=== PATIENT | female | born 1945 | race Caucasian/White ===

== ENCOUNTER 2020-10-08 13:21 | Outpatient (RCR) | payer MEDICARE, SELFPAY ==
[2020-10-08] MEDS: COVID-19 VACC, MRNA(PFIZER)/PF 30 MCG/0.3 ML SYRINGE IM (12:48)
[2020-10-29] MEDS: COVID-19 VACC, MRNA(PFIZER)/PF 30 MCG/0.3 ML SYRINGE IM (09:31)
== END 2021-01-07 23:59 ==
LOC: IMMUN 13:21
PROVIDERS: Referring Provider Family Medicine; Visit Provider Family Medicine
DX: Z23 Encounter for immunization (principal)
CPT/HCPCS: 0001A; 0002A; 91300

== ENCOUNTER 2022-05-25 13:30 | Observation (INO) | payer MEDICARE, SELFPAY ==
[2022-05-25] VITALS (7 sets, daily range): BP systolic 129–181; BP diastolic 72–104; PULSE 92–110; RESP 16–20; TEMP 36.7–37.3; O2SAT 95–100; BMI 30.9; BMI 31.4
--- NOTE | 2022-05-25 14:24 | RAD_ITS ---
STUDY: X-RAY CHEST REASON FOR EXAM: Female, 77 years old. SOB TECHNIQUE: Single AP portable view of the chest. COMPARISON: Comparison is made with prior examination dated 12/20/2014. FINDINGS: EKG electrodes are seen. Increased markings are seen at the left lung base suggestive of either early infiltrate and/or atelectasis. There is no demonstrated pleural abnormality. Normal size heart. Normal mediastinum and holden. Normal visualized pulmonary arteries. There is atherosclerotic tortuosity of the aortic arch and descending thoracic aorta. Normal visualized thoracic spine. Normal visualized ribs, clavicles, and shoulders. There is no demonstrated abnormality of the visualized soft tissue structures of the upper abdomen. RAD/Chest 1 View (Portable) IMPRESSION: Increased markings at the left lung base suggestive of either atelectasis and/or early infiltrate. Electronically Signed: Costa Caruso MD at 15:12 EDT ,
--- NOTE | 2022-05-25 14:24 | EKG12_ITS ---
Test Reason : SOB Blood Pressure : / mmHG Vent. Rate : 096 BPM Atrial Rate : 096 BPM P-R Int : 128 ms QRS Dur : 074 ms QT Int : 350 ms P-R-T Axes : 074 037 047 degrees QTc Int : 442 ms Normal sinus rhythm Normal ECG Confirmed by ANNY WINN, ANN-MARIE ([id number]), photo editor DICKSON AC ([id number]) on 05/27/2022 10:53:34 AM Referred By: Confirmed By:ANN-MARIE MCCORMICK MD
--- NOTE | 2022-05-25 14:26 | EDS_ITS ---
HPI History of Present Illness Chief Complaint: General Illness Informant: patient and spouse/S.O. Narrative Narrative: Patient presents with discomfort in her upper chest back shoulders and neck area. She states this started somewhere around noon yesterday. It was slow onset. It was not sudden tearing ripping. She is just aching in her upper body. It also does hurt when she takes a deep breath but she is not short of breath. She has a history of asthma that she takes Symbicort and albuterol for. But she has not been having wheezing or needing her inhaler. Patient has had trips recently. They flew to [facility] to take a cruise and just flew back 2 weeks ago. No leg pain or swelling. She has never had a DVT or PE nor has any known family member. She has no hemoptysis. Nothing specifically makes her symptoms worse other than moving and stretching. She thinks she did stretch too much yesterday to cause this. Using a neck brace also helps her. She has no numbness tingling weakness. She has no history of heart disease. She does have asthma and irritable bowel. She is non-smoker no blood pressure diabetes or cholesterol. Only meds are Symbicort, albuterol and Bentyl. Allergies to aspirin morphine and antihistamines No recent surgeries Non-smoker lives with [facility] Medical History (Updated 05/25/22 @ 18:[address] Castro Alcala MD) Asthma Home Medications budesonide-formoterol HFA 160 mcg-4.5 mcg/actuation aerosol inhaler (Symbicort) 2 puff inhalation BID 05/25/22 [History Last Taken Unknown] Allergy/AdvReac Type Severity Reaction Status Date / Time aspirin [ASA] AdvReac Other Verified 05/25/22 13:34 morphine AdvReac Other Verified 05/25/22 13:34 ANTI-HISTAMINES AdvReac Other Uncoded 05/25/22 13:34 Social History Smoking Status: Former smoker ROS ROS ED Constitutional Constitutional ED: Reports other Details: Patient had slight elevated temperature of 100.2 and then rechecked at 100.8 but this has not recurred since yesterday Eyes Eyes: Denies change in vision ENT ENT ED: Denies rhinorrhea or sore throat Cardiovascular Cardiovascular: Reports chest pain; Denies palpitations or racing heartbeat Respiratory/Chest Respiratory/Chest: Denies cough, dyspnea or sputum Gastrointestinal Gastrointestinal: Denies abdominal pain, nausea or vomiting Genitourinary Genitourinary ED: Denies dysuria or hematuria Musculoskeletal Musculoskeletal: Reports myalgias and neck pain; Denies back pain Integumentary Denies rash Neurologic Neurologic: Denies headache(s), paresthesias or weakness Endocrine Endocrinology: Denies polydipsia or polyuria Hematologic/Lymphatic Hematologic/Lymphatic: Denies easy bleeding or easy bruising Allergic/Immunologic Allergic/Immunologic ED: Denies urticaria EXAM Physical Exam Const Vital Signs: 05/25/22 13:32 05/25/22 14:55 05/25/22 16:00 Temperature 98.0 F Temperature Source Temporal Pulse Rate 110 H 92 Respiratory Rate 18 16 Respiratory Pattern Normal Blood Pressure 129/87 H 155/80 H Blood Pressure Mean 101 105 Pulse Ox 100 97 Oxygen Delivery Method Room Air Room Air 05/25/22 17:22 05/25/22 17:51 Temperature 98.0 F Temperature Source Temporal Pulse Rate 95 100 Respiratory Rate 19 H 17 Respiratory Pattern Blood Pressure 135/72 H 148/92 H Blood Pressure Mean 93 110 Pulse Ox 95 97 Oxygen Delivery Method Room Air Room Air Positive well nourished and well developed General Appearance ED: well developed and NAD; Negative for cyanotic or diaphoretic HEENT Reports moist mucous membranes Eyes EOMs intact bilaterally General Eye ED: Negative for scleral icterus Neck supple and no JVD Neck Narrative: She does have mild reproducible tenderness diffusely of the muscles of the neck upper back and chest and even around the shoulders. Resp normal respiratory effort and clear to auscultation bilaterally Cardio regular rate and regular rhythm Rate: other Other Details: Rate at this time at about 85. No murmur is heard. Normal distal pulses. GI normal to inspection, nondistended, normoactive bowel sounds Back/Spine no CVA tenderness Extremity normal to inspection Extremity Narrative: No edema cords tenderness or asymmetry. General Extremety ED: Negative for edema or tenderness General Extremity: Negative for edema Neuro oriented x3 Psych mental status grossly normal Skin no rashes or lesions noted MDM MDM MDM Narrative Medical decision making narrative: X-ray hints of atelectasis. But patient has no fever or white count. She is not really coughing to any great degree. No sputum. Her blood work shows normal CBC. D-dimer is negative. Electrolytes are normal. Glucose is minimally up at 116. However, her troponin was slightly elevated at 70. I talked with the patient again. She states she is having a lot of pain. She still describes it as her deltoid across her chest and shoulders on both sides but is a little more on the left. It is sore to lay on it or put pressure on it. It is a little sore to move. It has not migrated. This is the same pain that started yesterday at about noon. It was slow onset. Even though her D- dimer is negative, I am concerned with her pain. I will do a CTA of the chest. She states the only thing that she can take for pain is Motrin. She did take 3 aspirins yesterday less than 24 hours ago. She has a nonspecific intolerance but no allergy to NSAIDs. I stated we can try a small dose of Toradol. CTA of the chest is not showing any acute process. I did discuss the case prior to the CT with cardiology, Dr. Dougherty. Plan will be to admit. I discussed case with hospitalist. Repeat troponin is ordered Lab Data Labs: Laboratory Results - last 24 hr 05/25/22 05/25/22 05/25/22 14:45 14:45 14:45 WBC 8.5 RBC 4.36 Hgb 13.9 Hct 41.3 MCV 94.7 MCH 31.9 MCHC 33.7 RDW Std Deviation 49.1 H RDW Coeff of Uriel 14.1 Plt Count 336 MPV 10.6 Immature Gran % (Auto) 0.200 Neut % (Auto) 71.0 H Lymph % (Auto) 14.8 L [place] % (Auto) 10.2 H Eos % (Auto) 3.3 Baso % (Auto) 0.5 Absolute Neuts (auto) 6.0 Absolute Lymphs (auto) 1.26 Nucleated RBC % 0 D-Dimer Quant (PE/DVT) 0.48 Sodium 139 Potassium 4.0 Chloride 106 Carbon Dioxide 30.0 Anion Gap 3 L BUN 12 Creatinine 0.77 Estim Creat Clear Calc 41.97 Est GFR (MDRD) Af Amer 95 Est GFR (MDRD) Non-Af 78 BUN/Creatinine Ratio 15.7 Glucose 116 H Calcium 9.2 Troponin I High Sens 70 H 05/25/22 17:15 WBC RBC Hgb Hct MCV MCH MCHC RDW Std Deviation RDW Coeff of Uriel Plt Count MPV Immature Gran % (Auto) Neut % (Auto) Lymph % (Auto) [place] % (Auto) Eos % (Auto) Baso % (Auto) Absolute Neuts (auto) Absolute Lymphs (auto) Nucleated RBC % D-Dimer Quant (PE/DVT) Sodium Potassium Chloride Carbon Dioxide Anion Gap BUN Creatinine Estim Creat Clear Calc Est GFR (MDRD) Af Amer Est GFR (MDRD) Non-Af BUN/Creatinine Ratio Glucose Calcium Troponin I High Sens 57 H Radiography Diagnostic Testing: Clinical Impression(s) from Imaging Studies Chest X-Ray 05/25/22 14:24 IMPRESSION: Increased markings at the left lung base suggestive of either atelectasis and/or early infiltrate. Electronically Signed: Costa Caruso MD at 15:12 EDT , Chest CTA 05/25/22 16:00 IMPRESSION: No demonstrated pulmonary embolism or arterial dissection. Electronically Signed: Jony Chacko MD at 17:02 EDT , Hest x-ray shows some increased markings at the lung base that could be a telectasis. Discharge Plan Triage Chief Complaint: General Illness ED Provider: Castro Alcala Dx/Rx/DC Orders Clinical Impression: Chest pain, Elevated troponin Primary Care Provider: Care Physician,No Primary Disposition Disposition: Acute Care Hospital [facility]
[2022-05-25 15:01] LABS: Absolute Lymphocyte Count 1.26 X10^3/uL (0.83-4.51); Basophil# 0.04 X10^3/uL; Basophil% 0.5 % (0-1); Eosinophil# 0.28 X10^3/uL; Eosinophils% 3.3 % (0-5); Hematocrit 41.3 % (37-47); Hemoglobin 13.9 g/dL (12.0-15.0); Lymphocyte # 1.26 X10^3/ul (0.83-4.51); Lymphocyte % 14.8 % (19-41); Mean Corp Hgb Conc 33.7 g/dL (32-36); Mean Corpuscular Hgb 31.9 pg (27.0-32.0); Mean Corpuscular Volume 94.7 fL (81-99); Mean Platelet Vol. 10.6 fl (6.2-12.0); Monocyte# 0.87 X10^3/uL; Monocyte% 10.2 % (0-10); NRBC Flagged by Analyzer 0 % (0-5); Neutrophil # 6.02 X10^3/uL (2.7-7.7); Platelet Count 336 K/mm3 (150-450); RBC Distribution Width CV 14.1 % (11.6-14.6); RBC Distribution Width SD 49.1 fl (35.1-43.9); Red Blood Count 4.36 M/mm3 (4.2-5.4); White Blood Count 8.5 K/mm3 (4.4-11.0)
[2022-05-25 15:16] LABS: D-Dimer Quantitative (DVT/PE) 0.48 FEU/ug/m (0.27-0.49)
[2022-05-25 15:21] LABS: Anion Gap 3 (5-15); BUN 12 mg/dL (7-18); BUN/Creat Ratio 15.7 RATIO (10-20); Calcium,Total 9.2 mg/dL (8.5-10.1); Chloride 106 mmol/L (98-107); Creatinine, Serum 0.77 mg/dL (0.55-1.02); EST Glomerular Filtration Rate 78 mL/min (>60); Est Glom Filt Rate - Afr Amer 95 mL/min (>60); Estimated Creatinine Clearance 41.97 ml/min; Glucose 116 mg/dL (74-106); Sodium Level 139 mmol/L (136-145); Troponin-I HS 70 pg/mL (3.0-54.0)
--- NOTE | 2022-05-25 15:43 | CM.ED ---
SW Note Referral Source: Case Find Referral Reason: No Primary Care Physician (PCP) SW reviewed chart and noted that patient has no PCP. SW provided patient with list of [facility] and [facility] Physician List for reference. Patient reports no PCP but they are going to [place] shortly for 6 months and will have PCP in [place]. No other issues or concerns voiced at this time. SW remains available for any additional needs. Plan: Provided patient with PCP information Brittany SANTIAGO
--- NOTE | 2022-05-25 16:00 | CT_ITS ---
EXAM: CT ANGIOGRAPHY CHEST WITHOUT AND WITH INTRAVENOUS CONTRAST CLINICAL INDICATION: chest pain TECHNIQUE: Helically acquired angiography images were obtained of the chest without and with intravenous contrast. This CT exam was performed using one or more of the following dose reduction techniques: automated exposure control, adjustment of the mA and/or kV according to patient size, and/or use of iterative reconstruction technique. This report was created using [employer] report generation technology. MIP reconstructed images were created and reviewed. CONTRAST: IV 100mL [id number]-370 RADIATION DOSE: CTDIvol = 11.79 mGy, DLP = 332.25 mGy-cm COMPARISON: None. FINDINGS: PULMONARY ARTERIES: No demonstrated pulmonary embolism or arterial dissection. AORTA: Unremarkable. Normal in caliber. No evidence of dissection. GREAT VESSELS OF AORTIC ARCH: Unremarkable. Normal in caliber. No evidence of dissection. LUNGS AND PLEURAL SPACES: Unremarkable. No mass. No consolidation or edema. No pleural effusion or thickening. No pneumothorax. HEART: There are calcifications of the coronary arteries. No pericardial effusion. No signs of right heart strain, ratio of right ventricle to left ventricle measures less than 1. MEDIASTINUM: Unremarkable. No mediastinal or hilar adenopathy. Esophagus is unremarkable. No hiatal hernia. THYROID: Unremarkable. No thyroid lesions. BONES/JOINTS: There are degenerative changes of the shoulders. There are multi-level degenerative changes of the thoracic spine. No suspicious lytic or blastic abnormality. CT/CTA Chest W/WO Contrast IMPRESSION: No demonstrated pulmonary embolism or arterial dissection. Electronically Signed: Jony Chacko MD at 17:02 EDT ,
[2022-05-25] MEDS: Ketorolac 15 MG/ML Vial IV (16:11)
--- NOTE | 2022-05-25 17:13 | PCM.CONS.C ---
Assessment & Plan Assessment/Plan (1) Chest pain: PLAN: Patient presents with chest discomfort which appears to be somewhat atypical for coronary disease. There appears to be a pleuritic component to the above. I do not hear pericardial friction rub. Pleuropericarditis however cannot be completely excluded. I would recommend the following: Continue cardiac enzyme series. Echocardiogram to assess ventricular function in a.m. If cardiac enzymes are fairly plateau I would recommend a pharmacologic myocardial perfusion stress test Would recommend nonsteroidal anti-inflammatory with indomethacin 25 mg 3 times a day Will review in a.m. and depending on the findings further recommendations made. HPI Consult Data Date of Consult: 05/25/22 HPI Narrative HPI Narrative: JAD OROZCO, is a 77 F who presents to the emergency room with complaints of upper chest back neck and shoulder discomfort. She said it started approximately a day or go slow onset not necessarily related to activity. Is also does hurt when she takes a deep breath. She did return from a trip to [facility] approximately 2 weeks ago and as part of her evaluation she had a D-dimer done which was negative and a CT scan of her chest with did not demonstrate any significant abnormality. Her EKG demonstrated normal sinus rhythm with no acute changes. She was noted to have a minimally elevated high-sensitivity troponin and cardiology was called for further evaluation and management. She complains of chest discomfort when she takes in a deep breath and does not want to cough because of the discomfort. [facility] Medical History (Updated 05/25/22 @ 17:[address] Merrill Dougherty MD) Asthma Home Medications budesonide-formoterol HFA 160 mcg-4.5 mcg/actuation aerosol inhaler (Symbicort) 2 puff inhalation BID 05/25/22 [History Last Taken Unknown] Allergy/AdvReac Type Severity Reaction Status Date / Time aspirin [ASA] AdvReac Other Verified 05/25/22 13:34 morphine AdvReac Other Verified 05/25/22 13:34 ANTI-HISTAMINES AdvReac Other Uncoded 05/25/22 13:34 Social History Smoking Status: Former smoker ROS Constitutional Constitutional: Denies fever(s) or weight loss Eyes Eyes: Reports systems reviewed and no addt'l complaints, except as documented ENT HEENT: Reports systems reviewed and no addt'l complaints, except as documented Cardiovascular Cardiovascular: Reports chest pain at rest and chest pain with activity; Denies dyspnea at rest, dyspnea on exertion, edema, palpitations or paroxysmal nocturnal dyspnea Respiratory/Chest Respiratory/Chest: Denies dyspnea on exertion, productive cough, shortness of breath at rest or shortness of breath with exertion Gastrointestinal Gastrointestinal: Denies change in bowel habits, nausea, vomiting or weight changes Genitourinary Genitourinary: Denies difficulty urinating Musculoskeletal Musculoskeletal: Denies joint stiffness or muscle weakness Integumentary Integumentary: Denies lesions Neurologic Neurologic: Denies dizziness or syncope Psychiatric Psychiatric: Denies anxiety Endocrine Endocrinology: Denies excessive sweating or fatigue Hematologic/Lymphatic Hematologic/Lymphatic: Denies anemia Allergic/Immunologic Allergic/Immunologic: Denies seasonal rhinorrhea Physical Exam Const alert, oriented x3 and no apparent distress General Appearance: cooperative HEENT hearing grossly normal bilaterally Head and Scalp: atraumatic Eyes EOMs intact bilaterally Neck General: normal visual inspection Chest inspection of chest normal and palpation of chest normal Resp normal respiratory effort Auscultation: clear to auscultation bilaterally Cardio regular rate, regular rhythm, S1 normal heart sound and S2 normal heart sound Jugular Venous Distention: JVD GI normal to inspection, nondistended, normoactive bowel sounds Extremity normal capillary refill and no pedal edema Peripheral Pulses: Yes pulses 2+ throughout and femoral pulses present Skin no rashes or lesions noted Neuro oriented x3 and CN's II-XII intact bilaterally Psych Appearance: grossly normal and appropriate Risk Stratification Risk Stratification Applicable: Yes Age >/= 65: Yes >/= 3 CAD Risk Factors (HTN, HLD, DM, family hx of CAD, or current smoker): No Aspirin Use in the Past 7 Days: No Severe Angina (>/= episodes in 24 hours): No EKG ST Changes >/= 0.5mm: No Positive Cardiac Marker: No MONA Risk Stratification Score: 1 MONA % Risk: 5% Risk Objective Data Vital Signs: Vital Signs Temp Pulse Resp BP Pulse Ox O2 Del Method 98.0 F 92 16 155/80 H 97 Room Air 05/25/22 13:32 05/25/22 16:00 05/25/22 16:00 05/25/22 16:00 05/25/22 16:00 05/25/22 16:00 Oxygen Delivery Method Room Air Weight: 180 lb Body Mass Index (BMI) 30.9 Lab / Micro Data Result Diagrams: 05/25/22 14:45 05/25/22 14:45 Labs: Laboratory Results - last 24 hr 05/25/22 14:45: WBC 8.5, RBC 4.36, Hgb 13.9, Hct 41.3, MCV 94.7, MCH 31.9, MCHC 33.7, RDW Std Deviation 49.1 H, RDW Coeff of Uriel 14.1, Plt Count 336, MPV 10.6, Immature Gran % (Auto) 0.200, Neut % (Auto) 71.0 H, Lymph % (Auto) 14.8 L, [place] % (Auto) 10.2 H, Eos % (Auto) 3.3, Baso % (Auto) 0.5, Absolute Neuts (auto) 6.0, Absolute Lymphs (auto) 1.26, Nucleated RBC % 0 05/25/22 14:45: D-Dimer Quant (PE/DVT) 0.48 05/25/22 14:45: Sodium 139, Potassium 4.0, Chloride 106, Carbon Dioxide 30.0, Anion Gap 3 L, BUN 12, Creatinine 0.77, Estim Creat Clear Calc 41.97, Est GFR (MDRD) Af Amer 95, Est GFR (MDRD) Non-Af 78, BUN/Creatinine Ratio 15.7, Glucose 116 H, Calcium 9.2, Troponin I High Sens 70 H Micro: Microbiology 05/25/22 14:45 Nasal Secretion SARS-CoV-2 Antigen (Rapid) - Final Cardiology Labs/Tests 05/25/22 14:45: WBC 8.5, RBC 4.36, Hgb 13.9, Hct 41.3, MCV 94.7, MCH 31.9, MCHC 33.7, Plt Count 336, MPV 10.6, Immature Gran % (Auto) 0.200, Neut % (Auto) 71.0 H, Lymph % (Auto) 14.8 L, [place] % (Auto) 10.2 H, Eos % (Auto) 3.3, Baso % (Auto) 0.5, Absolute Neuts (auto) 6.0, Nucleated RBC % 0 05/25/22 14:45: D-Dimer Quant (PE/DVT) 0.48 05/25/22 14:45: Sodium 139, Potassium 4.0, Chloride 106, Carbon Dioxide 30.0, Anion Gap 3 L, BUN 12, Creatinine 0.77, Est GFR (MDRD) Af Amer 95, Est GFR (MDRD) Non-Af 78, BUN/Creatinine Ratio 15.7, Glucose 116 H, Calcium 9.2 Rhythm: EKG: ECHO: Stress Test: Cardiac Cath: PCI: CT Surgery: Holter monitor: EPS: PPM: CXR: Chest CT Scan: Radiography Diagnostic Testing: Radiology Impression Chest X-Ray 05/25/22 14:24 IMPRESSION: Increased markings at the left lung base suggestive of either atelectasis and/or early infiltrate. Electronically Signed: Costa Caruso MD at 15:12 EDT , Chest CTA 05/25/22 16:00 IMPRESSION: No demonstrated pulmonary embolism or arterial dissection. Electronically Signed: Jony Chacko MD at 17:02 EDT ,
--- NOTE | 2022-05-25 17:27 | ECHOD_ITS ---
Reason For Study: CHEST PAIN Procedure This was a 2D Doppler, Color Flow transthoracic echocardiogram. Exam performed portable in patient room. Left Ventricle Normal LV size. Left ventricular systolic function is normal. The estimated ejection fraction is 55 %. No regional wall motion abnormalities noted. Right Ventricle Normal RV size. Normal systolic function. Atria Normal left atrium. Normal right atrium. Mitral Valve Normal mitral valve. Tricuspid Valve Normal tricuspid valve. Aortic Valve Normal aortic valve. Trisinus/trileaflet aortic valve. Pulmonic Valve Normal pulmonic valve. Great Vessels Normal aortic root. The pulmonary artery is normal size. Normal inferior vena cava. Pericardium/Pleural No pericardial effusion. MMode/2D Measurements & Calculations LVIDd: 4.8 cm IVSd: 1.1 cm Ao root diam: 3.5 cm LVIDs: 3.2 cm LVPWd: 1.0 cm RVDd: 2.4 cm FS: 32.6 % LAV(MOD-bp): 60.3 ml LVAd ap4: 24.1 cm2 LVAd ap2: 21.7 cm2 LAV(MOD-bp) Indexed: 32.0 ml/m2 LVLd ap4: 8.1 cm LVLd ap2: 7.4 cm LAV(MOD-sp2): 52.8 ml EDV(MOD-sp4): 61.1 ml EDV(MOD-sp2): 54.4 ml LAV(MOD-sp4): 62.3 ml EDV(sp4-el): 61.0 ml EDV(sp2-el): 53.9 ml LVAs ap4: 15.4 cm2 LVAs ap2: 12.5 cm2 LVLs ap4: 7.3 cm LVLs ap2: 6.4 cm ESV(MOD-sp4): 29.2 ml ESV(MOD-sp2): 22.1 ml ESV(sp4-el): 27.5 ml ESV(sp2-el): 20.6 ml EF(MOD-sp4): 52.2 % EF(MOD-sp2): 59.4 % EF(sp4-el): 55.0 % SV(MOD-sp4): 31.9 ml SV(MOD-sp2): 32.3 ml SV(sp4-el): 33.5 ml LA dimension(2D): 4.2 cm LA A4 area: 19.2 cm2 RA A4 area: 8.5 cm2 Doppler Measurements & Calculations Lat Peak E' Myke: 9.7 cm/sec Med Peak E' Myke: 6.9 cm/sec Ao V2 max: 119.7 cm/sec Ao max P.7 mmHg LV V1 max: 78.7 cm/sec PA V2 max: 96.8 cm/sec LV V1 max P.5 mmHg ECHO/Echo Complete Interpretation Summary Normal LV size. Left ventricular systolic function is normal. The estimated ejection fraction is 55 %. No regional wall motion abnormalities noted. Ordering Physician: Merrill Dougherty Referring Physician: NO PCP Performed By: Olive Motley, EVELYNE, RVT
[2022-05-25 17:42] LABS: Troponin-I HS 57 pg/mL (3.0-54.0)
[2022-05-25] MEDS: Indomethacin 25 MG Capsule PO ×2 (17:50→21:39)
--- NOTE | 2022-05-25 19:11 | PCM.HP.STD ---
HPI - General General Date of Admission: 05/25/22 HPI Narrative JAD OROZCO, is a 77 F who presents to the hospital with anterior posterior chest pain. She also has pain with deep breathing consistent with pleurisy which she says she has had in the past, she also has noticed relief of her pain when leaning forward and its worse when leaning backwards. The case was discussed by the ED physician with cardiology who felt that this is potentially a combination of pleurisy and pericarditis. She did have significant improvement with Toradol of her chest pain. She did have a slight troponin elevation at 57. She does not have any cardiac history and denies any recent viral illness that she is aware of. Because of recent travel she had a D-dimer done which was negative however she they proceed with a CT scan of her chest which did not show any PE. [facility] Medical History (Updated 05/25/22 @ 18:[address] Castro Alcala MD) Asthma Home Medications budesonide-formoterol HFA 160 mcg-4.5 mcg/actuation aerosol inhaler (Symbicort) 2 puff inhalation BID SOB 05/25/22 [History Last Taken 05/23/22] Allergy/AdvReac Type Severity Reaction Status Date / Time aspirin [ASA] AdvReac Other Verified 05/25/22 13:34 morphine AdvReac Other Verified 05/25/22 13:34 ANTI-HISTAMINES AdvReac Other Uncoded 05/25/22 13:34 Family History no significant family his no significant family history Surgical History (Updated 05/25/22 @ 18:36 by Shelia Hernandez) History of appendectomy History of tonsillectomy Social History Smoking Status: Former smoker ROS Constitutional Constitutional: Denies chills, fatigue, fever(s) or malaise Eyes Eyes: Denies blurry vision ENT HEENT: Denies headache(s) or nasal discharge Cardiovascular Cardiovascular: Reports chest pain; Denies dyspnea on exertion or syncope Respiratory/Chest Respiratory/Chest: Denies cough, shortness of breath at rest or shortness of breath with exertion Gastrointestinal Gastrointestinal: Denies constipation, diarrhea, nausea or vomiting Genitourinary Genitourinary: Denies dysuria Neurologic Neurologic: Denies focal weakness, numbness or tremor(s) Psychiatric Psychiatric: Denies anxiety or depression Vital Signs Vital Signs Vital Signs: 05/25/22 13:32 05/25/22 14:55 05/25/22 16:00 Temperature 98.0 F Temperature Source Temporal Pulse Rate 110 H 92 Respiratory Rate 18 16 Respiratory Pattern Normal Blood Pressure 129/87 H 155/80 H Blood Pressure Mean 101 105 Pulse Ox 100 97 Oxygen Delivery Method Room Air Room Air 05/25/22 17:22 05/25/22 17:51 Temperature 98.0 F Temperature Source Temporal Pulse Rate 95 100 Respiratory Rate 19 H 17 Respiratory Pattern Blood Pressure 135/72 H 148/92 H Blood Pressure Mean 93 110 Pulse Ox 95 97 Oxygen Delivery Method Room Air Room Air Weight Weight: 180 lb Body Mass Index (BMI) 30.9 Physical Exam Narrative General: Alert, Oriented x3, Cooperative, No apparent distress HEENT: Atraumatic, PERRLA, EOMI, Normocephalic Oral: Moist Mucosa Neck: Supple, No JVD Lungs: Clear to auscultation, Normal air movement, No rhonchi, No wheeze, No rales Cardiovascular: Regular rate, Regular Rhythm, Normal S1, Normal S2, No murmurs, no rubs Abdomen: Soft, Non Tender, Non-Distended, No Hepato-splenomegaly Extremities: No edema, Capillary Refill Less than 3 Seconds Skin: No rashes, No breakdown Musculoskeletal: No Tenderness to Palpation of Joints or Extremities Neurological: Cranial nerves II-XII grossly intact, Motor Exam 5/5 strength throughout, Sensory exam intact to light touch and pain Psych/Mental Status: Normal Affect, Appropriate Results Lab / Micro Data Result Diagrams: 05/25/22 14:45 05/25/22 14:45 Labs: Laboratory Results - last 24 hr 05/25/22 14:45: WBC 8.5, RBC 4.36, Hgb 13.9, Hct 41.3, MCV 94.7, MCH 31.9, MCHC 33.7, RDW Std Deviation 49.1 H, RDW Coeff of Uriel 14.1, Plt Count 336, MPV 10.6, Immature Gran % (Auto) 0.200, Neut % (Auto) 71.0 H, Lymph % (Auto) 14.8 L, [place] % (Auto) 10.2 H, Eos % (Auto) 3.3, Baso % (Auto) 0.5, Absolute Neuts (auto) 6.0, Absolute Lymphs (auto) 1.26, Nucleated RBC % 0 05/25/22 14:45: D-Dimer Quant (PE/DVT) 0.48 05/25/22 14:45: Sodium 139, Potassium 4.0, Chloride 106, Carbon Dioxide 30.0, Anion Gap 3 L, BUN 12, Creatinine 0.77, Estim Creat Clear Calc 41.97, Est GFR (MDRD) Af Amer 95, Est GFR (MDRD) Non-Af 78, BUN/Creatinine Ratio 15.7, Glucose 116 H, Calcium 9.2, Troponin I High Sens 70 H 05/25/22 17:15: Troponin I High Sens 57 H Micro: Microbiology 05/25/22 14:45 Nasal Secretion SARS-CoV-2 Antigen (Rapid) - Final Radiology Impression Chest X-Ray 05/25/22 14:24 IMPRESSION: Increased markings at the left lung base suggestive of either atelectasis and/or early infiltrate. Electronically Signed: Costa Caruso MD at 15:12 EDT , Chest CTA 05/25/22 16:00 IMPRESSION: No demonstrated pulmonary embolism or arterial dissection. Electronically Signed: Jony Chacko MD at 17:02 EDT , Assessment & Plan Assessment/Plan (1) Chest pain: (2) Elevated troponin: PLAN: Plan 1. Chest pain with an elevated troponin consistent with pericarditis/pleurisy ? We will consult cardiology, will proceed with an echo and a stress test in the morning ? Serial cardiac enzymes ? Indocin 25 mg p.o. 3 times daily DVT: Ambulation Charges/Coding Visit Charges OBSV E&M: 73854 Initial observation care L2
--- NOTE | 2022-05-25 19:53 | EKG12_ITS ---
Test Reason : PRE STRESS TEST Blood Pressure : / mmHG Vent. Rate : 076 BPM Atrial Rate : 076 BPM P-R Int : 138 ms QRS Dur : 086 ms QT Int : 382 ms P-R-T Axes : 030 018 026 degrees QTc Int : 429 ms Sinus rhythm with Premature atrial complexes Otherwise normal ECG Confirmed by ANNY WINN, ANN-MARIE ([id number]), graphic editor DICKSON AC ([id number]) on 05/27/2022 11:10:53 AM Referred By: BENJAMIN Confirmed By:ANN-MARIE MCCORMICK MD
--- NOTE | 2022-05-25 19:59 | PCM.HOSP.N ---
Hospitalist Note Patient noted to be writhing in pain when she arrived at the floor. Patient did receive 25 mg of indomethacin at 1750. I will increase the indomethacin to 50 mg 3 times a day from 125. Also add scheduled acetaminophen 1000 mg 3 times daily and as needed 5 mg of oxycodone.
[2022-05-25] MEDS: Acetaminophen 500 MG Tablet 1000 MG PO (21:10)
[2022-05-25] MEDS: 0.9% Saline Lock 10 ML Syringe IV (21:40)
[2022-05-25 21:42] LABS: Troponin-I HS 50 pg/mL (3.0-54.0)
[2022-05-26] VITALS (9 sets, daily range): BP systolic 117–133; BP diastolic 62–87; PULSE 76–92; RESP 14–18; TEMP 36.3–36.6; O2SAT 94–98
[2022-05-26] MEDS: Acetaminophen 500 MG Tablet 1000 MG PO ×2 (05:16→13:04)
--- NOTE | 2022-05-26 05:55 | EKG12_ITS ---
Test Reason : Blood Pressure : / mmHG Vent. Rate : 101 BPM Atrial Rate : 101 BPM P-R Int : 136 ms QRS Dur : 082 ms QT Int : 344 ms P-R-T Axes : 061 025 034 degrees QTc Int : 446 ms Sinus tachycardia with occasional Premature ventricular complexes Otherwise normal ECG Confirmed by ANNY WINN, ANN-MARIE ([id number]), editorial clerk DICKSON AC ([id number]) on 05/27/2022 11:11:57 AM Referred By: Confirmed By:ANN-MARIE MCCORMICK MD
[2022-05-26 06:26] LABS: Absolute Lymphocyte Count 2.18 X10^3/uL (0.83-4.51); Absolute Neutrophil Count 6.2 X10^3/uL (2.0-7.7); Basophil# 0.04 X10^3/uL; Basophil% 0.4 % (0-1); Eosinophil# 0.26 X10^3/uL; Eosinophils% 2.6 % (0-5); Hematocrit 38.5 % (37-47); Hemoglobin 12.7 g/dL (12.0-15.0); Lymphocyte # 2.18 X10^3/ul (0.83-4.51); Lymphocyte % 21.8 % (19-41); Mean Corpuscular Volume 93.9 fL (81-99); Mean Platelet Vol. 10.8 fl (6.2-12.0); Monocyte# 1.25 X10^3/uL; Monocyte% 12.5 % (0-10); NRBC Flagged by Analyzer 0 % (0-5); Neutrophil # 6.21 X10^3/uL (2.7-7.7); Neutrophil % 62.3 % (47-70); Platelet Count 313 K/mm3 (150-450); RBC Distribution Width CV 13.9 % (11.6-14.6); RBC Distribution Width SD 47.8 fl (35.1-43.9)
[2022-05-26 06:59] LABS: Anion Gap 8 (5-15); BUN 17 mg/dL (7-18); BUN/Creat Ratio 21.4 RATIO (10-20); Calcium,Total 8.9 mg/dL (8.5-10.1); Chloride 103 mmol/L (98-107); Creatinine, Serum 0.79 mg/dL (0.55-1.02); EST Glomerular Filtration Rate 75 mL/min (>60); Est Glom Filt Rate - Afr Amer 91 mL/min (>60); Estimated Creatinine Clearance 41.97 ml/min; Glucose 93 mg/dL (74-106); Potassium 3.6 mmol/L (3.5-5.1); Sodium Level 137 mmol/L (136-145)
[2022-05-26] MEDS: Indomethacin 25 MG Capsule 50 MG PO ×3 (08:46→16:57)
--- NOTE | 2022-05-26 12:55 | PCM.PN.CARD ---
Subjective Subjective Patient seen and evaluated. Patient continues to have continuous chest discomfort. More in the shoulder and worse on taking a deep breath. Objective Data Vital Signs: Vital Signs Temp Pulse Resp BP Pulse Ox O2 Del Method 97.4 F L 78 18 129/76 H 98 Room Air 05/26/22 10:57 05/26/22 12:00 05/26/22 10:57 05/26/22 10:57 05/26/22 10:57 05/26/22 10:57 Oxygen Delivery Method Room Air Weight: 183 lb 6.793 oz Body Mass Index (BMI) 31.4 Intake & Output: Intake and Output for Last 24 Hours 05/24/22 05/25/22 05/26/22 23:59 23:59 23:59 Intake Total 290 / 290 Balance 290 / 290 Lab / Micro Data Result Diagrams: 05/26/22 04:23 05/26/22 04:23 Labs: Laboratory Results - last 24 hr 05/25/22 14:45: WBC 8.5, RBC 4.36, Hgb 13.9, Hct 41.3, MCV 94.7, MCH 31.9, MCHC 33.7, RDW Std Deviation 49.1 H, RDW Coeff of Uriel 14.1, Plt Count 336, MPV 10.6, Immature Gran % (Auto) 0.200, Neut % (Auto) 71.0 H, Lymph % (Auto) 14.8 L, [place] % (Auto) 10.2 H, Eos % (Auto) 3.3, Baso % (Auto) 0.5, Absolute Neuts (auto) 6.0, Absolute Lymphs (auto) 1.26, Nucleated RBC % 0 05/25/22 14:45: D-Dimer Quant (PE/DVT) 0.48 05/25/22 14:45: Sodium 139, Potassium 4.0, Chloride 106, Carbon Dioxide 30.0, Anion Gap 3 L, BUN 12, Creatinine 0.77, Estim Creat Clear Calc 41.97, Est GFR (MDRD) Af Amer 95, Est GFR (MDRD) Non-Af 78, BUN/Creatinine Ratio 15.7, Glucose 116 H, Calcium 9.2, Troponin I High Sens 70 H 05/25/22 17:15: Troponin I High Sens 57 H 05/25/22 20:58: Troponin I High Sens 50 05/26/22 04:23: WBC 10.0, RBC 4.10 L, Hgb 12.7, Hct 38.5, MCV 93.9, MCH 31.0, MCHC 33.0, RDW Std Deviation 47.8 H, RDW Coeff of Uriel 13.9, Plt Count 313, MPV 10.8, Immature Gran % (Auto) 0.400, Neut % (Auto) 62.3, Lymph % (Auto) 21.8, [place] % (Auto) 12.5 H, Eos % (Auto) 2.6, Baso % (Auto) 0.4, Absolute Neuts (auto) 6.2, Absolute Lymphs (auto) 2.18, Nucleated RBC % 0 05/26/22 04:23: Sodium 137, Potassium 3.6, Chloride 103, Carbon Dioxide 26.0, Anion Gap 8, BUN 17, Creatinine 0.79, Estim Creat Clear Calc 41.97, Est GFR (MDRD) Af Amer 91, Est GFR (MDRD) Non-Af 75, BUN/Creatinine Ratio 21.4 H, Glucose 93, Calcium 8.9 Micro: Microbiology 05/25/22 14:45 Nasal Secretion SARS-CoV-2 Antigen (Rapid) - Final Cardiology Labs/Tests 05/25/22 14:45: WBC 8.5, RBC 4.36, Hgb 13.9, Hct 41.3, MCV 94.7, MCH 31.9, MCHC 33.7, Plt Count 336, MPV 10.6, Immature Gran % (Auto) 0.200, Neut % (Auto) 71.0 H, Lymph % (Auto) 14.8 L, [place] % (Auto) 10.2 H, Eos % (Auto) 3.3, Baso % (Auto) 0.5, Absolute Neuts (auto) 6.0, Nucleated RBC % 0 05/25/22 14:45: D-Dimer Quant (PE/DVT) 0.48 05/25/22 14:45: Sodium 139, Potassium 4.0, Chloride 106, Carbon Dioxide 30.0, Anion Gap 3 L, BUN 12, Creatinine 0.77, Est GFR (MDRD) Af Amer 95, Est GFR (MDRD) Non-Af 78, BUN/Creatinine Ratio 15.7, Glucose 116 H, Calcium 9.2 05/26/22 04:23: WBC 10.0, RBC 4.10 L, Hgb 12.7, Hct 38.5, MCV 93.9, MCH 31.0, MCHC 33.0, Plt Count 313, MPV 10.8, Immature Gran % (Auto) 0.400, Neut % (Auto) 62.3, Lymph % (Auto) 21.8, [place] % (Auto) 12.5 H, Eos % (Auto) 2.6, Baso % (Auto) 0.4, Absolute Neuts (auto) 6.2, Nucleated RBC % 0 05/26/22 04:23: Sodium 137, Potassium 3.6, Chloride 103, Carbon Dioxide 26.0, Anion Gap 8, BUN 17, Creatinine 0.79, Est GFR (MDRD) Af Amer 91, Est GFR (MDRD) Non-Af 75, BUN/Creatinine Ratio 21.4 H, Glucose 93, Calcium 8.9 Rhythm: EKG: ECHO: Stress Test: Cardiac Cath: PCI: CT Surgery: Holter monitor: EPS: PPM: CXR: Chest CT Scan: Radiography Diagnostic Testing: Radiology Impression Chest X-Ray 05/25/22 14:24 IMPRESSION: Increased markings at the left lung base suggestive of either atelectasis and/or early infiltrate. Electronically Signed: Costa Caruso MD at 15:12 EDT , Chest CTA 05/25/22 16:00 IMPRESSION: No demonstrated pulmonary embolism or arterial dissection. Electronically Signed: Jony Chacko MD at 17:02 EDT , Echocardiogram 05/25/22 17:27 Interpretation Summary Normal LV size. Left ventricular systolic function is normal. The estimated ejection fraction is 55 %. No regional wall motion abnormalities noted. Ordering Physician: Merrill Dougherty Referring Physician: NO PCP Performed By: Olive Motley, EVELYNE, RVT Physical Exam Const alert, oriented x3 and no apparent distress General Appearance: cooperative HEENT hearing grossly normal bilaterally Head and Scalp: atraumatic Eyes EOMs intact bilaterally Neck General: normal visual inspection Chest inspection of chest normal and palpation of chest normal Resp normal respiratory effort Auscultation: clear to auscultation bilaterally Cardio regular rate, regular rhythm, S1 normal heart sound and S2 normal heart sound Jugular Venous Distention: JVD GI normal to inspection, nondistended, normoactive bowel sounds Extremity normal capillary refill and no pedal edema Peripheral Pulses: Yes pulses 2+ throughout and femoral pulses present Skin no rashes or lesions noted Neuro oriented x3 and CN's II-XII intact bilaterally Psych Appearance: grossly normal and appropriate Assessment & Plan Assessment/Plan (1) Chest pain: PLAN: Patient presents with chest discomfort which appears to be somewhat atypical for coronary disease. There appears to be a pleuritic component to the above. I do not hear pericardial friction rub. Pleuropericarditis however cannot be completely excluded. I would recommend the following: Her cardiac enzymes were essentially normal The echocardiogram performed demonstrated preserved left ventricular systolic function stress test today demonstrated no evidence of ischemia. Based on the above I would recommend that we treat her for pericarditis with indomethacin as well as colchicine
--- NOTE | 2022-05-26 13:02 | STRESSREP ---
Stress Test Report Pharmacologic myocardial perfusion stress test. 77-year-old lady with a history of chest pain atypical. Stress protocol: Resting EKG demonstrates sinus rhythm with a rate of 75 bpm resting blood pressure is 130/72 mmHg occasional premature ventricular complexes present.0.4 mg of regadenoson was infused per usual protocol followed by rapid intravenous saline flush injection continuous EKG monitoring was performed. The maximum heart rate attained was 105 bpm which was 72% of max heart rate the maximum workload was 1 metabolic equivalent. At rest nonspecific ST changes were noted we did not meet the criteria for ischemia and at peak infusion nonspecific changes were noted. The final blood pressure was 124/72 mmHg. Myocardial perfusion protocol. 11.7 mCi of technetium 99m sestamibi was injected at rest 0.4 mg of regadenoson was infused per usual protocol. At peak infusion 33.3 mCi of technetium 99m sestamibi was injected stress images were obtained stress and rest images were reconstructed and compared in the short axis vertical long and horizontal long axis. Gated images were also obtained. Perfusion SPECT analysis: Review of the stress images demonstrate normal uptake of tracer noted in all areas of the myocardium. The resting images similarly demonstrate normal uptake of tracer noted in all areas of the myocardium. No areas of reversibility are noted to suggest ischemia and no previous infarct is noted. Gated SPECT analysis: The gated ejection fraction of 64%. Conclusion: Normal pharmacologic myocardial perfusion stress test. Preserved ejection fraction.
[2022-05-26] MEDS: Ketorolac 30 MG/ML Syringe IV (14:34)
[2022-05-26] MEDS: 0.9% Saline Lock 10 ML Syringe IV (14:35)
--- NOTE | 2022-05-26 14:43 | CHAPLAIN ---
Type of Pastoral Visit _x__ Initial Visit ___ Follow-up Visit ___ On-call Visit ___ General Patient Visit ___ Spiritual Assessment ___ Family Conference ___ Bereavement ___ Rapid Response ___ Code Blue ___ Other (describe below) Pastoral Care Referral From _x__ Patient ___ Family ___ Nurse ___ Physician ___ Cigar Tobacco Rehandler ___ Motor Patrol Operator ___ Other (describe below) Sacrament/Intervention _x__ Active listening ___ Anointing ___ Restorationism ___ Bereavement ___ Communion _x__ Jocelyne exploration ___ _x__ Life review _x__ Prayer ___ Reconciliation ___ Sacrament of Sick __x_ Supportive presence ___ Wedding ___ Other (describe below) Pastoral Comments patient initially states that she just needs a prayer but then proceeds onto a long story of her physical condition, travels and move back to [place], the care of her 99 years old MIL, finding a doctor, finding a rastafarian, and her jocelyne journey; prayer and presence given
--- NOTE | 2022-05-26 15:49 | DCINST_ITS ---
Discharge Instructions Diet Discharge Diet: No restrictions Activity Discharge Activity: Return to Normal Activity Weight Bearing Status: Full weight bearing Follow Up Care Test Results: Test results from this visit will be discussed in further detail at your follow- up appointment, if applicable. Discharge Plan Admission Admit Date/Time: 05/25/22 19:08 Primary Reason for Your Visit: pericarditis Attending Provider: Karl Bell Primary Care Provider: Care Physician,No Primary Consulting Providers: Merrill Dougherty ; Obi Malin Instructions Additional Instructions / Restrictions: See your primary care physician in 2-3 weeks Discharge Orders/Prescriptions Prescriptions: New colchicine 0.6 mg Capsule 0.6 mg PO BID Qty: 60 0RF pantoprazole [Protonix] 40 mg tablet,delayed release (DR/EC) 40 mg PO DAILY Qty: 30 0RF tramadol 50 mg tablet 50 mg PO .QID PRN (Reason: pain) Qty: 40 0RF ibuprofen 800 mg tablet 800 mg PO TID Qty: 90 0RF Continued budesonide-formoterol [Symbicort] 160-4.5 mcg/actuation HFA aerosol inhaler 2 puff INHALATION BID Label Comments: INHALE 2 PUFFS BY MOUTH TWICE DAILY IN THE MORNING AND IN THE EVENING Referrals / Follow Up: Care Physician,No Primary [Primary Care Provider] - NOT,DEFINED [Non-Staff] - Disposition Disposition (needs filled in before D/C Order can be placed): Home, Self Care
--- NOTE | 2022-05-26 16:17 | PCM.DC.SUM ---
Providers Date of Admission: 05/25/22 Date of Discharge: 05/26/22 Primary Care Physician: Kizzy Primary Care Phys Consultations 05/25/22 19:47 Consult: Cardiology Routine Consulting Provider: Merrill Dougherty Reason for Consult: Pericarditis EMERGENT Consult: No MD Notified: Yes Date Notified: 05/25/22 Time Notified: 19:10 Method of Notification: ED Physician Initiated Reason For Visit: PERICARDITIS Diagnosis Discharge Diagnosis (1) Chest pain: Status: Acute Code(s): R07.9 - Chest pain, unspecified Plan 1. Acute pericarditis #2 chronic asthma Non-STEMI was ruled out Medications at Discharge Home Medications budesonide-formoterol HFA 160 mcg-4.5 mcg/actuation aerosol inhaler (Symbicort) 2 puff inhalation BID SOB 05/25/22 colchicine 0.6 mg capsule 0.6 mg PO BID #60 caps 05/26/22 ibuprofen 800 mg tablet 800 mg PO TID #90 tabs 05/26/22 pantoprazole 40 mg tablet,delayed release (Protonix) 40 mg PO DAILY #30 tabs 05/26/22 tramadol 50 mg tablet 50 mg PO .QID PRN pain #40 tabs 05/26/22 Hospital Course Operations None Procedures 2-D Echocardiogram and Nuclear stress test Summary of Care Provided Minutes Spent on Discharge: 31 Hospital Course: 77-year-old white female seen in the emergency room at [facility] with a chief complaint of precordial chest pain, patient also complained of discomfort in her upper back, shoulders, and neck area. Patient also stated that when she took in a deep breath she had chest discomfort, she did not complain of any shortness of breath. Work-up in the ER included a chest x-ray which showed possible atelectasis, patient had no fever or elevated white blood cell count, D-dimer was negative, troponin was slightly elevated at 70. CTA of the chest was performed which did not show any evidence of pulmonary emboli or acute process. Case was discussed with cardiology, patient was placed in observation status on PCU and her enzymes were cycled, the following set of enzymes went down to 57 and then down to 50 after that. Patient underwent an echocardiogram showed a normal EF and she underwent a stress test which was negative for reversible ischemia. Patient was felt to have pericarditis, she was treated with indomethacin and colchicine. On 05/26/2022, patient was seen and examined: On examination she appeared in good health and spirits, she does not appear to be in any distress. Vital signs as documented. Skin warm and dry and without overt rashes. Neck without JVD, thyroid appears normal, trachea is midline, neck is supple. Lungs clear, normal air movement was noted. Heart exam notable for regular rhythm, normal sounds and absence of murmurs, rubs or gallops. Abdomen unremarkable and without evidence of organomegaly, masses, or abdominal aortic enlargement, bowel sounds are present in all 4 quadrants, no abdominal tenderness was noted. Extremities nonedematous, no cyanosis was noted, no clubbing was noted. Neuro: Cranial nerves II through XII are grossly intact, no focal motor deficits were noted, sensation to light touch and pinprick is intact, motor exam 5/5 throughout. Psych: Patient is alert and oriented x3, she does not appear anxious or depressed, she does not appear agitated. Patient was discharged home in stable condition on 05/26/2022. Weight / BMI Weight Weight: 83.2 kg Body Mass Index (BMI) 31.4 ABG / Lab / Microbiology Data Result Diagrams: 05/26/22 04:23 05/26/22 04:23 Laboratory: Laboratory Results - last 24 hr 05/25/22 17:15: Troponin I High Sens 57 H 05/25/22 20:58: Troponin I High Sens 50 05/26/22 04:23: WBC 10.0, RBC 4.10 L, Hgb 12.7, Hct 38.5, MCV 93.9, MCH 31.0, MCHC 33.0, RDW Std Deviation 47.8 H, RDW Coeff of Uriel 13.9, Plt Count 313, MPV 10.8, Immature Gran % (Auto) 0.400, Neut % (Auto) 62.3, Lymph % (Auto) 21.8, [place] % (Auto) 12.5 H, Eos % (Auto) 2.6, Baso % (Auto) 0.4, Absolute Neuts (auto) 6.2, Absolute Lymphs (auto) 2.18, Nucleated RBC % 0 05/26/22 04:23: Sodium 137, Potassium 3.6, Chloride 103, Carbon Dioxide 26.0, Anion Gap 8, BUN 17, Creatinine 0.79, Estim Creat Clear Calc 41.97, Est GFR (MDRD) Af Amer 91, Est GFR (MDRD) Non-Af 75, BUN/Creatinine Ratio 21.4 H, Glucose 93, Calcium 8.9 05/26/22 04:23: C-React Prot High Sens 72.30 H Microbiology: Microbiology 05/25/22 14:45 Nasal Secretion SARS-CoV-2 Antigen (Rapid) - Final Radiography Diagnostic Testing: Radiology Impression Chest CTA 05/25/22 16:00 IMPRESSION: No demonstrated pulmonary embolism or arterial dissection. Electronically Signed: Jony Chacko MD at 17:02 EDT , Echocardiogram 05/25/22 17:27 Interpretation Summary Normal LV size. Left ventricular systolic function is normal. The estimated ejection fraction is 55 %. No regional wall motion abnormalities noted. Ordering Physician: Merrill Dougherty Referring Physician: KIZZY PCP Performed By: Olive Motley RDCS, RVT D/C Instructions Discharge Diet: No restrictions Weight Bearing Status: Full weight bearing Meaningful Use Info Meaningful Use Diagnoses (Choose all that apply): None applicable Discharge Plan Admission Admit Date/Time: 05/25/22 19:08 Primary Reason for Your Visit: pericarditis Attending Provider: Karl Bell Primary Care Provider: Care Physician,No Primary Consulting Providers: Merrill Dougherty ; Obi Malin Instructions Additional Instructions / Restrictions: See your primary care physician in 2-3 weeks Discharge Orders/Prescriptions Prescriptions: New colchicine 0.6 mg Capsule 0.6 mg PO BID Qty: 60 0RF pantoprazole [Protonix] 40 mg tablet,delayed release (DR/EC) 40 mg PO DAILY Qty: 30 0RF tramadol 50 mg tablet 50 mg PO .QID PRN (Reason: pain) Qty: 40 0RF ibuprofen 800 mg tablet 800 mg PO TID Qty: 90 0RF Continued budesonide-formoterol [Symbicort] 160-4.5 mcg/actuation HFA aerosol inhaler 2 puff INHALATION BID Label Comments: INHALE 2 PUFFS BY MOUTH TWICE DAILY IN THE MORNING AND IN THE EVENING Referrals / Follow Up: Care Physician,No Primary [Primary Care Provider] - NOT,DEFINED [Non-Staff] - Disposition Disposition (needs filled in before D/C Order can be placed): Home, Self Care Charges/Coding Visit Charges OBSV E&M: 13564 Observation care discharge
--- NOTE | 2022-05-26 17:53 | NURSING ---
Reviewed charting with Madison Lindquist RN
== END 2022-05-26 16:16 | disposition home or self-care (01) ==
LOC: ED 14:39 → PCU 18:06
PROVIDERS: Internal Medicine Cardiovascular Disease; Admitting Provider Family Medicine; Emergency Provider Emergency Medicine; Visit Provider Internal Medicine
DX: I31.9 Disease of pericardium, unspecified (principal); R77.8 Other specified abnormalities of plasma proteins; K58.9 Irritable bowel syndrome, unspecified; Z87.891 Personal history of nicotine dependence; J45.909 Unspecified asthma, uncomplicated; Z79.51 Long term (current) use of inhaled steroids
CPT/HCPCS: 36415; 71045; 71275; 78452; 80048; 84484; 85025; 85379; 86141; 87811; 93005; 93017; 93306; 96374; 96376; 99218; 99285; A9500; Q9967; A4216; G0378; J2785

== ENCOUNTER 2023-01-27 21:36 | Emergency (ER) | payer MEDICARE, SELFPAY ==
[2023-01-27 21:37] VITALS: BP 128/92; PULSE 88; RESP 18; TEMP 36.8; O2SAT 98; BMI 31.9
--- NOTE | 2023-01-27 22:00 | EX.ED.DYSGE1 ---
HPI History of Present Illness Chief Complaint: Complaint Detail of Chief Complaint: Hematuria Informant: patient Narrative Narrative: Patient presents with what she believes is a UTI. She does report a history of frequent UTIs, especially when she takes baths. She is been bathing the last several days. She states that her PCP in [place] had started her on lisinopril. She developed a significant cough from this and with her cough was unable to hold her urine. She was recently switched to losartan and her cough is improving. Patient has noted hematuria and frequency since yesterday. [facility] Medical History (Updated 01/27/23 @ 23:[address] Moriah Tyler MD) Asthma Colitis Former smoker Hypertension Migraines Osteoporosis Home Medications budesonide-formoterol HFA 160 mcg-4.5 mcg/actuation aerosol inhaler (Symbicort) 2 puff inhalation BID SOB 05/25/22 [History Last Taken 01/27/23] colchicine 0.6 mg capsule 0.6 mg PO BID #60 caps 05/26/22 [Rx Last Taken Unknown] ibuprofen 800 mg tablet 800 mg PO TID #90 tabs 05/26/22 [Rx Last Taken Unknown] pantoprazole 40 mg tablet,delayed release (Protonix) 40 mg PO DAILY #30 tabs 05/26/22 [Rx Last Taken Unknown] albuterol sulfate 90 mcg/actuation aerosol inhaler 1 puff inhalation Q6H PRN shortness of breath or wheezing 01/27/23 [History Last Taken Unknown] benzonatate 100 mg capsule 200 mg PO Q6H PRN cough 01/27/23 [History Last Taken 01/27/23] dicyclomine 20 mg tablet 20 mg PO DAILY PRN COLITIS 01/27/23 [History Last Taken Unknown] losartan 25 mg tablet 25 mg PO DAILY 01/27/23 [History Last Taken 01/27/23] montelukast 10 mg tablet 10 mg PO QHS 01/27/23 [History Last Taken 01/26/23] nitrofurantoin monohydrate/macrocrystals 100 mg capsule (Macrobid) 100 mg PO Q12H 5 days #10 caps 01/27/23 [Rx Last Taken Unknown] Allergy/AdvReac Type Severity Reaction Status Date / Time lisinopril AdvReac Severe COUGH Verified 01/27/23 22:29 aspirin [ASA] AdvReac Other Verified 01/27/23 21:39 morphine AdvReac Other Verified 01/27/23 21:39 ANTI-HISTAMINES AdvReac Other Uncoded 05/25/22 13:34 Surgical History History of appendectomy History of tonsillectomy Social History Smoking Status: Former smoker ROS ROS ED Constitutional Constitutional ED: Denies chills or fever(s) Eyes Eyes: Denies change in vision or discharge from eye(s) ENT ENT ED: Denies discharge from eye(s) or sore throat Cardiovascular Cardiovascular: Denies chest pain or palpitations Respiratory/Chest Respiratory/Chest: Reports cough; Denies dyspnea Gastrointestinal Gastrointestinal: Denies abdominal pain, diarrhea, nausea or vomiting Genitourinary Genitourinary ED: Reports dysuria and hematuria; Denies difficulty urinating Musculoskeletal Musculoskeletal: Denies back pain or extremity pain Integumentary Denies Abrasions or rash Neurologic Neurologic: Denies headache(s) or weakness Psychiatric Psychiatric: Denies anxiety or depression Allergic/Immunologic Allergic/Immunologic ED: Denies lip swelling or urticaria EXAM Physical Exam Const Vital Signs: 01/27/23 21:37 Temperature 98.3 F Temperature Source Temporal Pulse Rate 88 Respiratory Rate 18 Blood Pressure 128/92 H Blood Pressure Mean 104 Pulse Ox 98 Oxygen Delivery Method Room Air Positive well nourished and well developed General Appearance ED: well developed HEENT Reports moist mucous membranes Eyes PERRL and EOMs intact bilaterally Neck no lymphadenopathy Chest Wall inspection of chest normal and palpation of chest normal Resp normal respiratory effort and clear to auscultation bilaterally Cardio regular rate and regular rhythm GI normal to inspection, nondistended, normoactive bowel sounds and non-tender Back/Spine no CVA tenderness Extremity normal to inspection Neuro oriented x3 and no sensory deficits noted Motor Exam: strength 5/5 throughout Skin no rashes or lesions noted MDM MDM MDM Narrative Medical decision making narrative: Urinalysis obtained to evaluate for infection/hematuria. Lab Data Labs: Laboratory Results - last 24 hr 01/27/23 22:20 Urine Color Red Urine Clarity Cloudy Urine pH 6.5 Ur Specific [place] 1.010 Urine Protein 30 H Urine Glucose (UA) Normal Urine Ketones 5 H Urine Occult Blood 250 H Urine Nitrite Negative Urine Bilirubin Negative Urine Urobilinogen Normal Ur Leukocyte Esterase 100 H Urine RBC > 100 SEEN Urine WBC 5-10 SEEN Ur Squamous Epith Cells 0-5 SEEN Urine Bacteria RARE Urine Mucus 0 SEEN Treatment and Re-Evaluation :: Urinalysis reveals rare bacteria with 5-10 white cells and greater than 100 RBCs. Patient reports multiple UTIs in the past and this feels similar. She does not have history of kidney stone and has no significant abdominal or back pain. I will treat her with Macrobid and send a urine culture. Return instructions are given. Patient and are comfortable with this plan. Discharge Plan Triage Chief Complaint: Complaint ED Provider: Moriah Tyler Dx/Rx/DC Orders Clinical Impression: Cystitis Instructions: ED Cystitis Female Adult Prescriptions: New nitrofurantoin monohyd/m-cryst [Macrobid] 100 mg capsule 100 mg PO Q12H 5 Days Qty: 10 0RF Rx Instructions: must administer with a meal/food No Action budesonide-formoterol [Symbicort] 160-4.5 mcg/actuation HFA aerosol inhaler 2 puff INHALATION BID Patient Comments: INHALE 2 PUFFS BY MOUTH TWICE DAILY IN THE MORNING AND IN THE EVENING colchicine 0.6 mg Capsule 0.6 mg PO BID Qty: 60 0RF Hold Instructions: NO LONGER TAKING pantoprazole [Protonix] 40 mg tablet,delayed release (DR/EC) 40 mg PO DAILY Qty: 30 0RF Hold Instructions: NO L ONGER TAKING ibuprofen 800 mg tablet 800 mg PO TID Qty: 90 0RF benzonatate 100 mg capsule 200 mg PO Q6H PRN (Reason: cough) Patient Comments: TAKE 1 CAPSULE BY MOUTH THREE TIMES DAILY NEEDED FOR COUGH albuterol sulfate 90 mcg/actuation HFA aerosol inhaler 1 puff INHALATION Q6H PRN (Reason: shortness of breath or wheezing) Patient Comments: INHALE 1 PUFF BY MOUTH EVERY 4 TO 6 HOURS NEEDED dicyclomine 20 mg tablet 20 mg PO DAILY PRN (Reason: COLITIS) Patient Comments: TAKE 1 TABLET BY MOUTH THREE TIMES DAILY NEEDED FOR COLITIS SYMPTOMS montelukast 10 mg tablet 10 mg PO QHS Patient Comments: TAKE 1 TABLET BY MOUTH ONCE DAILY IN THE EVENING FOR ALLERGIES/ASTHMA losartan 25 mg tablet 25 mg PO DAILY Primary Care Provider: Care Physician,No Primary Referrals: Care Physician,No Primary [Primary Care Provider] - Disposition Disposition: Home, Self Care
[2023-01-27 22:30] LABS: Mucous, Urine 0 SEEN /hpf (<or=2+)
[2023-01-27 22:52] LABS: Color, Urine Red (Yellow); Glucose, Dipstick Normal (Normal); Ketone-Dipstick 5 mg/dl (Negative); Leukocyte Esterase-Dipstick 100 /ul (Negative); Nitrite-Dipstick Negative (Negative); Occult Blood-Urine 250 /ul (Negative); Protein-Dipstick 30 mg/dl (Negative); Urine Bilirubin Dipstick Negative (Negative); Urine Clarity Cloudy (Clear); Urine Urobilinogen Normal (Normal); Urine pH 6.5 (5.0 - 8.0)
[2023-01-27 23:11] LABS: White Blood Cells 5-10 SEEN /hpf (0-5)
[2023-01-27 23:12] LABS: Bacteria RARE /hpf (None Seen); Red Blood Cells-Urine > 100 SEEN /hpf (0-5); Squamous Epithelial Cells - UA 0-5 SEEN /hpf (5-10)
[2023-01-27] MEDS: Nitrofurantoin Macrocrystals 100 MG Capsule PO (23:36)
[2023-01-27 23:37] VITALS: RESP 18
== END 2023-01-27 23:38 | disposition home or self-care (01) ==
PROVIDERS: Emergency Provider Emergency Medicine; Visit Provider Emergency Medicine
DX: N30.91 Cystitis, unspecified with hematuria (principal); I10 Essential (primary) hypertension; Z87.891 Personal history of nicotine dependence; Z87.440 Personal history of urinary (tract) infections; Z79.899 Other long term (current) drug therapy; R30.0 Dysuria
CPT/HCPCS: 81001; 87086; 87088; 99282